=== PATIENT | female | born 1965 | race Caucasian/White ===

== ENCOUNTER 2018-05-14 23:17 | Emergency (ER) | payer BC ==
[~2018-05-14] VITALS: Ht 149.9 cm; Wt 104.3 kg
[2018-05-14 23:34] VITALS: BP 139/79
--- NOTE | 2018-05-14 23:37 | NUR ---
TO LOBBY A/W BED, JORGE KRISHNAMURTHY NOTED
--- NOTE | 2018-05-14 23:44 | NUR ---
PT TAKEN TO BED 06
--- NOTE | 2018-05-14 23:57 | NUR ---
53 YO F BIB SELF AND DAUGHTER PRESENTS TO THE ED C/O OPEN WOUND TO THE UMBILICAL REGION. PT STATES WHEN SHE WENT TO SHOWER THIS EVENING SHE FELT A "POPPING" SENSATION TO HER BELLY BUTTON AND A LARGE AMOUNT OF BLEEDING. PT STATES SHE HAD LIPO SUCTION SURGERY IN 2014 AND THE INCISION WAS IN THE SAME AREA. PT DENIES PAIN AT THIS TIME. -- OPEN WOUND NOTED IN BETWEEN SKIN FOLDS OF THE UMBILICAL REGION. SOME DRIED BLOOD NOTED. NO ACTIVE BLEEDING AT THIS TIME. SITE IS RED. NO WARMTH, DRAINAGE OR FOUL ODOR NOTED. -- PMH: THRYOID DISORDER, PRE DIABETES. PT POSITIONED FOR COMFORT. HOB ELEVATED. BED RAIL UP X 1. BED IN LOWEST POSITION. VSS. NO APPARENT DISTRESS AT THIS TIME.
--- NOTE | 2018-05-15 00:03 | NUR ---
Dr. Ford evaluating patient at bedside.
--- NOTE | 2018-05-15 00:25 | NUR ---
LAB AT BEDSIDE.
[2018-05-15 00:42] LABS: APPEARANCE,URINE CLEAR (CLEAR); BILIRUBIN,URINE NEGATIVE (NEGATIVE); BLOOD, URINE NEGATIVE (NEGATIVE); COLOR,URINE YELLOW (YELLOW); LEUKOCYTE ESTERASE ,URINE NEGATIVE (NEGATIVE); NITRITE, URINE NEGATIVE (NEGATIVE); UGLUCOSE NEGATIVE (NEGATIVE)
[2018-05-15 00:47] LABS: BASOPHILS % (AUTO) 0.5 % (0.0-2.0); EOSINOPHILS # (AUTO) 0.3 K/uL (0-0.4); EOSINOPHILS % (AUTO) 3.5 % (0.0-4.0); HEMATOCRIT 39.7 % (36-48); LYMPHOCYTES # (AUTO) 2.6 K/uL (2.5-16.5); LYMPHOCYTES % (AUTO) 36.3 % (20.5-51.1); MEAN CORPUSCULAR HEMOGLOBIN 28 pg (27-31); MEAN CORPUSCULAR HGB CONC 33 g/dL (33-37); MEAN CORPUSCULAR VOLUME 84.9 fL (80-94); MONOCYTES # (AUTO) 0.4 K/uL (0.8-1.0); MONOCYTES % (AUTO) 5.9 % (1.7-9.3); NEUTROPHILS # (AUTO) 3.9 K/uL (1.8-7.7); NEUTROPHILS % (AUTO) 53.8 % (42.2-75.2); PLATELET COUNT (AUTO) 261 K/uL (140-450); RED BLOOD CELL COUNT(AUTO) 4.67 MIL/uL (4.20-5.40); WHITE BLOOD COUNT (AUTO) 7.3 K/uL (4.8-10.8)
--- NOTE | 2018-05-15 00:51 | NUR ---
PT RETURN FROM CT
[2018-05-15 01:05] LABS: ANION GAP 12.8 (8-16); CARBON DIOXIDE 29.7 mmol/L (21-32); CREATININE 0.6 mg/dL (0.6-1.3); POTASSIUM 3.5 mmol/L (3.5-5.1)
[2018-05-15 01:11] LABS: ALBUMIN 3.4 g/dL (3.4-5.0); TOTAL BILIRUBIN 0.2 mg/dL (0.0-1.0)
[2018-05-15] MEDS ORDERED: CEPHALEXIN 500 MG CAP PO ONE (01:40)
[2018-05-15] MEDS ORDERED: SULFAMETH/TRIMETH DS 800/160MG 1 TAB PO ONE (01:40)
[2018-05-15] MEDS ORDERED: BACITRACIN OINT 500 UNITS/GM PKT TP ONE ×2 (01:40→01:51)
--- NOTE | 2018-05-15 01:53 | NUR ---
WOUND CLEANED TO UMBILICIUS AREA, BACITRACIN APPLIED. PT TOLERATED PROCEDURE WELL.
[2018-05-15 01:54] VITALS: BP 118/66
--- NOTE | 2018-05-15 01:54 | NUR ---
Patient discharged with v/s stable. Written and verbal after care instructions given and explained. Patient alert, oriented and verbalized understanding of instructions. Ambulatory with steady gait. All questions addressed prior to discharge. ID band removed. Patient advised to follow up with PMD. Rx of Keflex, Bactrim, and Bacitracin given. Patient educated on indication of medication including possible reaction and side effects. Opportunity to ask questions provided and answered.
== END 2018-05-15 01:54 | disposition home or self-care (01) ==
LOC: MED 23:17
DX: K95.81 Infection due to other bariatric procedure (principal); E07.9 Disorder of thyroid, unspecified
CPT/HCPCS: 36415; 80053; 81003; 81025; 83605; 85025; 87040; 87086; 99284